=== PATIENT | female | born 1945 | race Caucasian/White ===

== ENCOUNTER 2024-03-06 09:23 | Outpatient (CLI) | payer MEDICARE, BC, SELFPAY | END 2024-03-06 09:24 | disposition home or self-care (01) | LOC: NFLDREF 03-08 10:22 | PROVIDERS: Visit Provider Nurse Practitioner Family | DX: N30.00 Acute cystitis without hematuria (principal) | CPT/HCPCS: 87086; 87186 ==

== ENCOUNTER 2024-04-07 09:12 | Outpatient (CLI) | payer MEDICARE, SELFPAY | END 2024-04-07 09:13 | disposition home or self-care (01) | LOC: NFLDREF 04-08 11:13 | PROVIDERS: Visit Provider Nurse Practitioner Family | DX: R35.0 Frequency of micturition (principal); N30.00 Acute cystitis without hematuria | CPT/HCPCS: 87086; 87186 ==

== ENCOUNTER 2025-03-09 13:31 | Outpatient (CLI) | payer MEDICARE, BC, SELFPAY | END 2025-03-09 13:32 | disposition home or self-care (01) | DX: N30.00 Acute cystitis without hematuria (principal) | CPT/HCPCS: 87086 ==